=== PATIENT | female | born 1980 | race American Indian/Alaskan Native ===

== ENCOUNTER 2019-07-07 05:58 | Observation (INO) | payer BC ==
--- NOTE | 2019-07-05 11:40 | Anesthesia Consultation ---
Anesthesia Consult and Med Hx Date of service: 07/07/19 - Airway Anesthetic Teeth Evaluation: Good ROM Head & Neck: Adequate Mental/Hyoid Distance: Adequate Mallampati Class: Class II Intubation Access Assessment: Good - Pulmonary Exam CTA: Yes - Cardiac Exam Cardiac Exam: No Murmur - Pre-Operative Health Status ASA Pre-Surgery Classification: ASA2 Proposed Anesthetic Plan: General - Cardiovascular System Hx Hypertension: Yes (x 1 year) - Central Nervous System Hx Psychiatric Problems: No - Hematic Hx Anemia: Yes Hx Sickle Cell Disease: Yes (Trait only) - Other Systems Hx Alcohol Use: Yes (occas) Hx Substance Use: Yes (Quit using marijuana 8 mos ago) Hx Cancer: No
[2019-07-05 12:15] LABS: Basophils # (Auto) 0.1 K/mm3 (0.0-0.1); Basophils % (Auto) 0.7 % (0.0-1.8); Eosinophils # (Auto) 0.2 K/mm3 (0.0-0.4); Eosinophils % (Auto) 1.7 % (0.0-4.3); Hematocrit 41.9 % (30.3-42.9); Hemoglobin 13.2 gm/dl (10.1-14.3); Lymphocytes # (Auto) 2.8 K/mm3 (1.2-5.4); Lymphocytes % (Auto) 30.4 % (13.4-35.0); Mean Corpuscular HGB Conc 32 % (30-34); Mean Corpuscular Volume 71 fl (79-97); Monocytes # (Auto) 0.7 K/mm3 (0.0-0.8); Monocytes % (Auto) 7.5 % (0.0-7.3); Platelet Count 344 K/mm3 (140-440); Red Blood Count 5.94 M/mm3 (3.65-5.03); Red Cell Distribution Width 16.3 % (13.2-15.2)
[2019-07-05 12:26] LABS: BUN/Creatinine Ratio 11; Blood Urea Nitrogen 9 mg/dL (7-17); Calcium 9.6 mg/dL (8.4-10.2); Hemolysis Index 3
[2019-07-07] MEDS ORDERED: MIDAZOLAM 2 MG/2 ML INJ IV NR ×2 (06:00→12:00)
[2019-07-07] MEDS ORDERED: FAMOTIDINE 20 MG TAB PO NR ×2 (06:00→12:00)
[2019-07-07] MEDS ORDERED: GABAPENTIN 300 MG CAP PO NR ×2 (06:00→12:00)
[2019-07-07] MEDS ORDERED: LACTATED RINGERS 1,000 ML IV SCH ×2 (06:00→12:00)
[2019-07-07] MEDS ORDERED: fentaNYL 100 MCG/2 ML INJ IV PRN (06:00)
[2019-07-07] MEDS ORDERED: CELECOXIB 200 MG CAP PO NR ×2 (06:00→12:00)
[2019-07-07] MEDS ORDERED: dexAMETHasone 20 MG/5 ML VIAL ONE (07:06)
[2019-07-07] MEDS ORDERED: LIDOCAINE MPF (2%) 20 MG/1 ML VIAL 5 ML ONE (07:06)
[2019-07-07] MEDS ORDERED: KETOROLAC 30 MG/1 ML INJ ONE (07:06)
[2019-07-07] MEDS ORDERED: HYDROmorphone 1 MG/1 ML INJ ONE ×2 (07:06→10:56)
[2019-07-07] MEDS ORDERED: ROCURONIUM 50 MG/5 ML INJ IV ONE (07:06)
[2019-07-07] MEDS ORDERED: ONDANSETRON 4 MG/2 ML INJ ONE (07:06)
[2019-07-07] MEDS ORDERED: PROPOFOL 200 MG/20 ML VIAL IV ONE (07:07)
[2019-07-07] MEDS ORDERED: fentaNYL 100 MCG/2 ML INJ ONE (07:07)
[2019-07-07] MEDS ORDERED: dexAMETHasone 4 MG/ML VIAL ONE (07:13)
[2019-07-07] MEDS ORDERED: LIDOCAINE (1%) 10 MG/1 ML VIAL 20 ML MDV ONE (07:13)
[2019-07-07] MEDS ORDERED: BUPIVACAINE-EPINEPHRINE/PF 0.25%-1:200,000 (30 ML) VIAL INFILTRATI ONE (07:14)
[2019-07-07] MEDS ORDERED: NEOMY 40 MG/POLYMYXIN B 200,000 UNITS/ML (GU) AMPULE IR ONE ×2 (07:16→08:52)
--- NOTE | 2019-07-07 07:26 | History and Physical Report ---
History of Present Illness Date of examination: 07/07/19 Date of admission: 07/07/2019 Chief complaint: Symptomatic uterine fibroids History of present illness: 39-year-old with a history of symptomatic uterine fibroids. The patient reports significant pain and discomfort during her menses and also heavy bleeding during her cycle. Pelvic ultrasound demonstrated evidence of an enlarged uterus with 2 dominant leiomyomas measuring 5.5-5.4 cm respectively. The patient has been counseled on other treatment options and has elected to undergo definitive surgical management. Past History Past Medical History: hypertension, other (uterine fibroids; obesity) Past Surgical History: no surgical history Social history: single - Obstetrical History : 2 Para: 1 Hx # Term Pregnancies: 1 Number of Pregnancies: 0 Spontaneous Abortions: 0 Induced : 1 Number of Living Children: 0 Medications and Allergies Allergies Allergy/AdvReac Type Severity Reaction Status Date / Time lisinopril Allergy Angioedema Verified 06/28/19 17:22 Home Medications Medication Instructions Recorded Confirmed Last Taken Type Olmesartan Medoxomil [Benicar] 20 mg PO DAILY 07/05/19 07/05/19 Unknown History hydroCHLOROthiazide [Hctz] 12.5 mg PO QDAY 07/05/19 07/05/19 Unknown History Active Meds: Active Medications Celecoxib (Celebrex) 200 mg PO PREOP NR Stop: 07/07/19 23:59 Famotidine (Pepcid) 20 mg PO PREOP NR Stop: 07/07/19 23:59 Fentanyl (Sublimaze) 100 mcg IV ONCE PRN PRN Reason: sedation for nerve block Stop: 07/07/19 23:59 Gabapentin (Gabapentin) 600 mg PO PREOP NR Stop: 07/07/19 23:59 Lactated Ringer's (Lactated Ringers) 1,000 mls @ 100 mls/hr IV DIRECT MARINA Midazolam HCl (Versed) 2 mg IV PREOP NR Stop: 07/07/19 23:59 Review of Systems All systems: negative Genitourinary: vaginal bleeding, pelvic pain - Vital Signs Vital signs: Vital Signs Temp Pulse Resp BP Pulse Ox 98.5 F 100 H 20 158/103 99 07/05/19 11:00 07/05/19 11:00 07/05/19 11:00 07/05/19 11:00 07/05/19 11:00 Temp Pulse Resp BP Pulse Ox 99.0 F 109 H 20 141/98 98 07/07/19 06:30 07/07/19 06:30 07/07/19 06:30 07/07/19 06:30 07/07/19 06:30 - Physical Exam Breasts: Positive: deferred Cardiovascular: Regular rate Lungs: Positive: Clear to auscultation Results Result Diagrams: 07/05/19 11:10 07/05/19 11:10 All other labs normal. Assessment and Plan - Patient Problems (1) Fibroid uterus Current Visit: Yes Status: Acute Plan to address problem: Patient is scheduled to undergo a robotic hysterectomy and bilateral salpingectomy (2) Menorrhagia Current Visit: Yes Status: Acute (3) Dysmenorrhea Current Visit: Yes Status: Acute
--- NOTE | 2019-07-07 07:27 | Anesthesia Day of Surgery ---
Anesthesia Day of Surgery - Day of Surgery Patient Examined: Yes Patient H&P Reviewed: Yes Patient is NPO: Yes
[2019-07-07] MEDS ORDERED: ceFAZolin/Water 2 GM/20 ML 2 GM/20 ML SYRINGE IV NR (08:00)
[2019-07-07] MEDS ORDERED: PHENYLEPHRINE/NS 1,000 MCG/10 ML SYRINGE (OR USE) IV ONE ×2 (08:34→09:19)
[2019-07-07] MEDS ORDERED: ESMOLOL 100 MG/10 ML INJ IV ONE (08:34)
[2019-07-07] MEDS ORDERED: SODIUM CHLORIDE 0.9% IRR 1,500 ML BOTTLE IR ONE (08:52)
[2019-07-07] MEDS ORDERED: SODIUM CHLORIDE 0.9% IRRIG SOLN 2000 ML IR ONE (08:52)
[2019-07-07] MEDS ORDERED: GLYCOPYRROLATE 0.4 MG/2 ML INJ ONE (10:06)
[2019-07-07] MEDS ORDERED: NEOSTIGMINE 10MG/10 ML INJ MDV ONE (10:06)
[2019-07-07] MEDS ORDERED: MORPHINE 4 MG/1 ML INJ IV PRN (10:14)
[2019-07-07] MEDS ORDERED: ACETAMINOPHEN 325 MG TAB PO PRN (10:14)
[2019-07-07] MEDS ORDERED: ZOLPIDEM 5 MG TAB PO PRN (10:14)
[2019-07-07] MEDS ORDERED: IBUPROFEN 800 MG TAB PO PRN (10:14)
--- NOTE | 2019-07-07 10:14 | Operative Report ---
Operative Report Operative Report: Date of surgery: 07/07/2019 Preoperative diagnoses: Symptomatic uterine fibroids; menorrhagia; dysmenorrhea Postoperative diagnoses: Same as above Procedure: Robotic hysterectomy; bilateral salpingectomy Surgeon: Federica Tomlinson M.D. Electrical Engineering Designer: Erin Scott Anesthesia: Gen. endotracheal anesthesia Estimated blood loss: 50 mL Pathology: Uterus, cervix, bilateral tubes, leiomyomas Indication: 39-year-old with a history of symptomatic uterine fibroids. Pelvic ultrasound demonstrated an enlarged fibroid uterus with multiple leiomyomas. The patient elected for definitive surgical management. Procedure: The patient was taken to the operating room and given general endotracheal anesthesia without complication. She is prepped and draped in a normal sterile fashion. A bivalve speculum was placed in the patient's vagina and a single- tooth tenaculum placed on the anterior lip of the cervix. The uterus was sounded with the uterine sound. A [employer] uterine manipulator was placed in the bivalve speculum was then removed. Attention was then turned to the patient's abdomen where a millimeter supra umbilical skin incision was then made. A Veress needle was placed and peritoneal entry was verified water-filled syringe. Insufflation of the peritoneal cavity was performed with CO2 gas. The 12 mm trocar was then placed under direct visualization. An additional 8 mm trocar was placed on the patient's left and right lateral side just opposite of the supraumbilical trocar. An additional 5 mm right lateral trocar was then placed as the accessory port. The patient was then placed in steep Trendelenburg. The da Eduardo robot was then engaged. A fenestrated forcep was placed in arm 2 and a vessel sealer was placed in arm 1. Gen. survey of the pelvis and abdomen revealed a markedly enlarged fibroid uterus. The ovaries and tubes were normal in appearance bilaterally. The uterus was approximately 16 weeks' size with multiple leiomyomas. The surgeon then transferred to the surgical console. The mesosalpinx was then isolated on the right. The vessel sealer was used to coagulate the mesosalpinx which was then transected. The tube was transected from the ovary. The tubo-ovarian ligament was then coagulated and transected. The round ligament was then coagulated and transected also. The vesicouterine peritoneum was then entered from the patient's right side. The uterine vessels were then coagulated with the vessel sealer. The vessels were then transected . Attention was then turned to the patient's left side where the tubo-ovarian ligament and mesosalpinx were again isolated coagulated and transected. The vesical peritoneum was then entered from the left and joined in the midline. Peritoneum was reflected off of the lower uterine segment. Uterine vessels were then coagulated and then transected. The blood supply to the uterus was adequately contained. A myomectomy had to be performed in order to improve visualization. The uterus was amputated from the cervix prior to the posterior colpotomy being made. The V care ring was visualized. Posterior colpotomy was created with the monopolar scissors. The incision was continued circumferentially until anterior colpotomy was made. The cervix was amputated from the vaginal cuff. The uterus and the leiomyomas had to be bivalved in order to facilitate delivery through the vagina. The uterus was then removed along with the leiomyomas and tubes bilaterally through the vagina and a warm laparotomy sponge was placed and maintain the pneumoperitoneum. The vaginal cuff was then closed in a running fashion with V lock suture. Irrigation of the pelvis was performed. Hemoblast was applied to the incision. The supraumbilical 12 mm trocar site was closed with the Teo Liegh device. The skin was then reapproximated with 4-0 Monocryl. The tissue was sent to pathology which included the cervix, leiomyomas, and uterus. The patient was then successfully extubated. She was then taken to the recovery room in stable condition. All sponge laps and needle counts were correct x2.
[2019-07-07] MEDS: HYDROmorphone 1 MG/1 ML INJ IV PRN ×2 (10:57→11:08)
[2019-07-07] MEDS ORDERED: D5W/LACTATED RINGERS 1,000 ML IV SCH (11:00)
--- NOTE | 2019-07-07 12:44 | Post Anesthesia Evaluation ---
- Post Anesthesia Evaluation Patient Participated: Yes Airway Patent: Yes Stable Respiratory Function: Yes Nausea/Vomiting: No Temp > 96.8F: Yes Pain Manageable: Yes Adequeate Hydration: Yes Anesthesia Complications: No
[2019-07-07] MEDS ORDERED: SODIUM CHLORIDE 0.9% 1000 ML 1,000 ML IV ONE (13:00)
[2019-07-07] MEDS: oxyCODONE /ACETAMINOPHEN 5-325MG TAB PO PRN (15:02)
[2019-07-07] MEDS: KETOROLAC 30 MG/1 ML INJ IV SCH ×2 (17:19→23:26)
[2019-07-07 18:47] LABS: Hematocrit 45.8 % (30.3-42.9); Hemoglobin 14.4 gm/dl (10.1-14.3)
[2019-07-08 05:23] LABS: Hematocrit 46.9 % (30.3-42.9); Hemoglobin 14.7 gm/dl (10.1-14.3)
[2019-07-08] MEDS: oxyCODONE /ACETAMINOPHEN 5-325MG TAB PO PRN (06:39)
[2019-07-08] MEDS: KETOROLAC 30 MG/1 ML INJ IV SCH (07:47)
--- NOTE | 2019-07-08 08:31 | Progress Note ---
Assessment and Plan - Patient Problems (1) Fibroid uterus Current Visit: Yes Status: Acute Plan to address problem: patient doing well discharge home (2) Menorrhagia Current Visit: Yes Status: Acute (3) Dysmenorrhea Current Visit: Yes Status: Acute Subjective - Subjective Date of service: 07/08/19 Interval history: Patient having minor lower abdominal discomfort. Tolerated clears Patient reports: appetite normal, voiding normally, pain well controlled Objective - Vital Signs Latest vital signs: Vital Signs Temp Pulse Resp BP BP Pulse Ox 07/08/19 04:00 98.4 F 88 18 114/79 07/08/19 00:00 98 F 74 18 121/78 07/07/19 20:00 99 F 66 16 134/87 07/07/19 11:55 98.2 F 113 H 14 145/85 98 07/07/19 11:30 103 H 20 138/82 100 07/07/19 11:15 97.3 F L 102 H 22 133/78 100 07/07/19 11:00 102 H 24 140/79 100 07/07/19 10:45 100 H 24 136/86 100 07/07/19 10:40 99 H 24 136/84 100 07/07/19 10:36 97.6 F 100 H 20 137/88 100 Intake and Output 07/07/19 07/08/19 07/08/19 22:59 06:59 14:59 Intake Total 300 Output Total 965 1475 Balance -665 -1475 Intake: Intake, Free Water 300 Output: Urine 965 1475 Indwelling Catheter 965 1475 Other: Total, Output Amount 600 125 Voiding Method Toilet Toilet # Voids Indwelling Catheter 1 - Exam Breasts: Present: deferred Cardiovascular: Present: Regular rate Lungs: Present: Clear to auscultation Abdomen: Present: normal appearance - Labs Labs: Abnormal lab results 07/07/19 07/08/19 Range/Units 18:35 04:01 Hgb 14.4 H 14.7 H (10.1-14.3) gm/dl Hct 45.8 H 46.9 H (30.3-42.9) %
--- NOTE | 2019-07-08 08:35 | Discharge Summary ---
Providers - Providers Date of Admission: 07/07/19 10:14 Date of discharge: 07/08/19 Attending physician: MARIELOS GUTIERREZ Primary care physician: ALFRED MUNOZPJose Alejandro Hospitalization Reason for admission: other (uterine fibroids) Procedure: other (robotic hysterectomy ) Incision: normal Discharge diagnosis: other (uterine fibroids) Hospital course: Patient admitted the day of surgery for a robotic hysterectomy. See op note. Postop only complicated by tachycardia that resolved spontaneously. Condition at discharge: Good Disposition: DC-[id number] TO HOME OR SELFCARE - Discharge Diagnoses (1) Fibroid uterus Status: Acute (2) Menorrhagia Status: Acute (3) Dysmenorrhea Status: Acute Plan - Discharge Medications Prescriptions: Ibuprofen [Motrin] 800 mg PO Q8HR PRN #60 tablet PRN Reason: Pain, Mild (1-3) oxyCODONE /ACETAMINOPHEN [Percocet 5/325] 1 tab PO Q6HR PRN #30 tablet PRN Reason: Pain - Provider Discharge Summary Activity: no sex for 6 weeks, no heavy lifting 4 weeks, no strenuous exercise Diet: routine Instructions: routine Additional instructions: [] Smoking cessation referral if applicable(refer to patient education folder for contact #) [] Refer to [facility] Booklet Call your doctor immediately for: * Fever > 100.5 * Heavy vaginal bleeding ( >1 pad per hour) * Severe persistent headache * Shortness of breath * Reddened, hot, painful area to leg or breast * Drainage or odor from incision. * Keep incision clean and dry at all times and follow doctor's instructions regarding bathing/showering schedule followup in 4 weeks - Follow up plan
[2019-07-08 09:24] VITALS: BP 147/98
== END 2019-07-08 10:20 | disposition home or self-care (01) ==
LOC: OR 05:58 → OB 10:14
PROVIDERS: ADMIT Obstetrics & Gynecology; ATTEND Obstetrics & Gynecology
DX: D25.9 Leiomyoma of uterus, unspecified (principal); N92.0 Excessive and frequent menstruation with regular cycle; N94.6 Dysmenorrhea, unspecified; I10 Essential (primary) hypertension
CPT/HCPCS: 36415; 58573; 64450; 80048; 84703; 85014; 85018; 85025; 86850; 86900; 86901; 88307; 93005; 93010; 96374; 96375; 96376; A4217; G0378; J1100; J1170; J1885; J2250; J2370; J2405; J2704; J2710; J3010; J7030; J7120; S2900